=== PATIENT | male | born 1985 | race Caucasian/White ===

== ENCOUNTER 2017-11-26 19:51 | Emergency (ER) | payer OTHER ==
[2017-11-26 20:01] VITALS: BP 157/85; PULSE 79; TEMP 98.6; BMI 36.3
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
[2017-11-26] MEDS ORDERED: IBUPROFEN 600 MG TABLET (FP) PO ONE ×2 (20:51→20:54)
== END 2017-11-26 21:05 | disposition home or self-care (01) ==
LOC: JERFT 19:51
DX: S63.635A Sprain of interphalangeal joint of left ring finger, initial encounter (principal); S99.811A Other specified injuries of right ankle, initial encounter; Y04.2XXA Assault by strike against or bumped into by another person, initial encounter; Y93.89 Activity, other specified; Y92.89 Other specified places as the place of occurrence of the external cause; Y99.8 Other external cause status; W19.XXXA Unspecified fall, initial encounter
CPT/HCPCS: 73140-TC-LT-FY; 73610-TC-RT-FY; 73630-TC-RT-FY; 99281-25